=== PATIENT | male | born 1995 | race Two or more races ===

== ENCOUNTER 2024-11-21 02:50 | Emergency (ER) | payer MEDICAID, SELFPAY ==
[2024-11-21 02:51] VITALS: BMI 29.3
[2024-11-21 03:01] VITALS: BP 144/93; PULSE 96; RESP 19; TEMP 36.4; O2SAT 96
--- NOTE | 2024-11-21 03:11 | PD.EDDENTL ---
ED Dental RME/HPI General Chief complaint: Anxiety Stated complaint: ANXIETY ATTACK AFTER TOOTH CAME OUT Time Seen by Provider: 11/21/24 02:58 Source: patient Arrival date/time: 11/21/24 02:50 29-year-old male occasional drinker brought in by mother complaining of anxiety after he removed part of his right lower second molar. On exam right lower second molar appears with dental caries local gingival swelling with no active bleeding. Patient denies any fever, chills, vomiting, rectal bleeding, abdominal pain, sore throat, or any other associated symptom. Mode of arrival: ambulatory Limitations: no limitations Related Data Home Medications ?Medication ?Instructions ?Recorded ?Confirmed No Known Home Medications 08/28/21 08/28/21 Previous Rx's ?Medication ?Instructions ?Recorded amoxicillin 875 mg-potassium 1 tab PO BID 7 days #14 tabs 11/21/24 clavulanate 125 mg tablet Allergies Allergy/AdvReac Type Severity Reaction Status Date / Time No Known Allergies Allergy Verified 08/28/21 20:08 Review of Systems Review of Systems Systems Reviewed: All systems reviewed, normal except as documented Constitutional Constitutional: Reports system reviewed and no additional complaints, except as documented, Denies body ache(s), Denies chills and Denies fever(s) Eyes Eyes: Reports system reviewed and no additional complaints, except as documented and Denies change in vision ENT Ears, Nose, Mouth, and Throat: Reports system reviewed and no additional complaints, except as documented, Denies disequilibrium, Denies dizziness, Reports mouth pain, Denies sore throat and Denies vertigo Cardiovascular Cardiovascular: Reports system reviewed and no additional complaints, except as documented, Denies chest pain and Denies dyspnea Respiratory Respiratory: Reports system reviewed and no additional complaints, except as documented, Denies chest congestion, Denies cough and Denies dyspnea Gastrointestinal Gastrointestinal: Reports system reviewed and no additional complaints, except as documented, Denies abdominal pain, Denies nausea and Denies vomiting Musculoskeletal Musculoskeletal: Reports system reviewed and no additional complaints, except as documented, Denies abnormal gait and Denies arthralgias Integumentary/Breasts Skin/Breast: Reports system reviewed and no additional complaints, except as documented, Denies erythema, Denies rash and Denies wounds Neurologic Neurologic: Reports system reviewed and no additional complaints, except as documented, Denies abnormal gait, Denies disequilibrium, Denies dizziness and Denies vertigo Past Medical History Social History SMOKING STATUS: Never smoker ED Exam General Limitations: Present no limitations General appearance: Present alert and in no apparent distress Head Head exam: Present atraumatic Eye Eye exam: Present normal appearance, PERRL and EOMI ENT ENT exam: Present normal exam, normal oropharynx and mucous membranes moist Expanded ENT Exam Teeth exam: Present dental caries, fractured tooth #, gingival swelling and other (Denies pain) Teeth numbered:  1. Fractured and Other (Dental caries with localized gingival swelling) Neck Neck exam: Present normal inspection, full ROM and trachea midline Chest Chest inspection: Present normal inspection and symmetric chest wall rise Respiratory Respiratory exam: Present normal lung sounds bilaterally Cardiovascular Cardiovascular exam: Present regular rate, normal rhythm and normal heart sounds Abdominal Exam Abdominal exam: Present soft and normal bowel sounds Extremities Exam Extremities exam: Present normal inspection and full ROM Back Exam Back exam: Present normal inspection and full ROM Neurological Exam Neurological exam: Present alert, oriented X3 and CN II-XII intact Psychiatric Psychiatric exam: Present normal affect and normal mood Skin Skin exam: Present warm, dry, intact and normal color Course Quality Measures none Vital Signs Vital signs: Vital Signs Temperature 97.5 F 11/21/24 03:01 Pulse Rate 96 11/21/24 03:01 Respiratory Rate 19 11/21/24 03:01 Blood Pressure 144/93 H 11/21/24 03:01 Pulse Oximetry (%) 96 11/21/24 03:01 Oxygen Delivery Method Room Air 11/21/24 03:01 96% room air within normal limits Dental / Oral MDM Narrative MDM Narrative:: 29-year-old male occasional drinker brought in by mother complaining of anxiety after he removed part of his right lower second molar. On exam right lower second molar appears with dental caries local gingival swelling with no active bleeding. Patient denies any fever, chills, vomiting, rectal bleeding, abdominal pain, sore throat, or any other associated symptom. Patient denies any pain. Patient does report drink a couple beers today. Patient GCS 15 answering questions appropriately. Patient and mother instructed to follow-up with dentist in 2 to 3 days and will be prescribed antibiotics to reduce swelling while they follow-up as instructed. Instructed to return immediately to emergency department for any worsening symptoms or as needed for Patient data External records reviewed:: [facility] previous records Clinical information provided by:: patient Social determinants that could affect healthcare access:: alcohol use Patient has the following chronic illnesses:: See chart How is presenting disease/condition affected by chronic disease/condition?: exacerbated by Evaluation data The following diagnostics were reviewed and interpreted by me:: other (specify) (N/A) Lab and/or radiology exams considered but not ordered:: N/A Interpretation Summary: N/A Medications / Prescriptions Medications or Prescriptions considered but not ordered:: N/A Medication administrations:: N/A Consultations Consultation(s) initiated? (list below): No Diagnosis Dental Differential Diagnosis: gingival abscess, dental caries, toothache, dental abscess, fracture of tooth and aphthous ulcer Most likely diagnosis given after review of the tests above:: Infected tooth Admission Indicated Admission indicated?: not indicated Admission Request Was there a request for admission?: No Disposition Plan Disposition Plan: Discharge Discharge Attestation Discharge Attestation: The patient and all family members were given an opportunity to ask questions and understood the discharge instructions. Discharge instructions specifically effects, indications for sooner follow up or return to the emergency department, and the expected course of current diagnosis. Patient condition: Stable Discharge Plan Plan Patient Disposition: HOME (Self Care) Disposition Comment: Stable Prescriptions/Referrals Prescriptions/Med Rec: New amoxicillin-pot clavulanate 875-125 mg tablet 1 tab PO BID 7 Days Qty: 14 0RF No Action No Known Home Medications Problem List Clinical Impression: Infected tooth Patient/Caregiver Discharge Instructions Education Materials: Dental Abscess, ED Dental Abscess Additional Instructions: Take ibuprofen or Tylenol as needed for pain. Take antibiotics as prescribed. Follow-up with dentist in 2 to 3 days as discussed. Follow-up with primary care provider in 2 to 3 days as well. Return to emergency department for any worsening symptoms or as needed. Print Language: Palestinian Stand Alone Forms: [employer] Award Info., Patient Portal Info Letter PA/MEDICAL PRACTICE ADMINISTRATOR Supervising Physician PA/KANCHAN Supervising Physician: Dr. Tejeda
== END 2024-11-21 03:32 | disposition home or self-care (01) ==
LOC: SERX 03:20
PROVIDERS: Emergency Provider Emergency Medicine
DX: K02.9 Dental caries, unspecified (principal); F41.9 Anxiety disorder, unspecified
CPT/HCPCS: 99281

== ENCOUNTER 2025-01-07 03:11 | Emergency (ER) | payer MEDICAID, SELFPAY ==
[2025-01-07 03:14] VITALS: BMI 29.8
[2025-01-07 03:30] VITALS: BP 145/80; PULSE 113; RESP 17; TEMP 36.8; O2SAT 97
--- NOTE | 2025-01-07 03:36 | PD.EDRME ---
Rapid Medical Screening Exam RME Arrival date/time: 01/07/25 03:11 29 yo m present to ED for c/o rectal bleeding I have greeted and performed a focused initial assessment of this patient. A comprehensive ED assessment and evaluation of the patient, analysis of all test results, and completion of the medical decision making process will be conducted by additional ED providers. Chief Complaint: GI Bleed Time Seen by Provider: 01/07/25 03:25 Vital signs: Vital Signs Temperature 98.3 F 01/07/25 03:30 Pulse Rate 113 H 01/07/25 03:30 Respiratory Rate 17 01/07/25 03:30 Blood Pressure 145/80 H 01/07/25 03:30 Pulse Oximetry (%) 97 01/07/25 03:30 Oxygen Delivery Method Room Air 01/07/25 03:30
[2025-01-07 03:52] LABS: Basophils # (Auto) 0.1 Thou/mm3 (0.0-0.2); Basophils % (Auto) 2 % (0-2.5); Eosinophils # (Auto) 0.3 Thou/mm3 (0.0-0.5); Eosinophils % (Auto) 4 % (0-10); Hematocrit 49.6 % (41.0-53.0); Hemoglobin 17.1 g/dL (13.5-16.0); Immature Granulocytes % (Auto) 0 % (0-0); Immature Granulocytes Auto 0.01 Thou/mm3 (0.00-0.00); Lymphocytes # (Auto) 2.7 Thou/mm3 (1.0-4.8); Lymphocytes % (Auto) 34 % (10-50); Mean Corpuscular HGB Conc 34.5 g/dl (31.0-37.0); Mean Corpuscular Hemoglobin 31.4 pg (25.0-35.0); Mean Corpuscular Volume 91 fL (80-100); Monocytes # (Auto) 0.7 Thou/mm3 (0.0-0.8); Monocytes % (Auto) 9 % (0-12); Neutrophils % (Auto) 51 % (37-80); Nucleated Red Blood Cell % 0 /100 WBC (0); Platelet Count 334 Thou/mm3 (140-440); RDW Standard Deviation 46.7 fL (35.1-43.9); Red Blood Count 5.44 Miln/mm3 (4.50-5.90); White Blood Count 7.8 Thou/mm3 (3.8-10.6)
[2025-01-07 04:06] LABS: INR 1.1 (0.9-1.3); Prothrombin Time 12.4 Seconds (9.0-12.2)
[2025-01-07 04:28] LABS: Alanine Aminotransferase 25 U/L (10-49); Albumin, Serum 4.6 gm/dL (3.5-5.0); Albumin/Globulin Ratio 1.2 (1.2-2.2); Alkaline Phosphatase 96 U/L (46-116); Anion Gap 12 (7-16); Aspartate Amino Transferase 53 U/L (0-34); BUN/Creatinine Ratio 7 Ratio (12-20); Bilirubin,Total 1.4 mg/dL (0.3-1.2); Blood Urea Nitrogen < 5 mg/dL (9-23); Calcium 9.6 mg/dL (8.3-10.6); Calcium (Corrected) 9.6 mg/dL (8.5-10.1); Carbon Dioxide 26.8 mMol/L (20.0-31.0); Chloride 107 mMol/L (98-107); Creatinine (Component) 0.7 mg/dL (0.6-1.3); Estimated Creatinine Clearance 155.4 mL/min (>60); Globulin 3.8 gm/dL (2.3-3.5); Glucose 91 mg/dL (74-106); Lipase 43 U/L (12-53); Osmolality,Calculated 287 (275-295); Potassium 3.9 mMol/L (3.4-5.1); Sodium 146 mMol/L (136-145); Total Protein 8.4 gm/dL (5.7-8.2); eGFR > 60 See Note
== END 2025-01-07 04:13 | disposition left against medical advice (07) ==
LOC: SERX 03:42
PROVIDERS: Physician Assistant; Emergency Provider Emergency Medicine; PCP Physician Assistant
DX: K62.5 Hemorrhage of anus and rectum (principal); Z53.29 Procedure and treatment not carried out because of patient's decision for other reasons
CPT/HCPCS: 36415; 80053; 83690; 83735; 85025; 85610; 99281